=== PATIENT | male | born 1945 | race Caucasian/White ===

== ENCOUNTER 2018-04-04 22:26 | Emergency (ER) | payer MEDICARE ==
[~2018-04-04] VITALS: Ht 167.6 cm; Wt 68.2 kg
[2018-04-04] MEDS ORDERED: CITA-106 PO (22:38)
[2018-04-04] MEDS ORDERED: ADV250 IH (22:38)
[2018-04-04] MEDS ORDERED: PANT40TA25 PO (22:38)
[2018-04-04] MEDS ORDERED: ATOR20TA86 PO (22:38)
[2018-04-04] MEDS ORDERED: ALBU8HFA IH (22:38)
[2018-04-04] MEDS ORDERED: LISI-662 PO (22:38)
[2018-04-04] MEDS ORDERED: ASPI-556 PO (22:38)
[2018-04-05] MEDS ORDERED: ACETAMINOPHEN 325 MG TABLET PO ONE (01:15)
[2018-04-05] MEDS ORDERED: PROPARACAINE HCL 0.5% 15 ML OPHTHALMIC SOLUTION OU ONE (01:15)
[2018-04-05] MEDS ORDERED: DiphenhydrAMINE HCL 25 MG CAPSULE PO ONE (02:15)
[2018-04-05 02:39] VITALS: BP 129/84
== END 2018-04-05 02:39 | disposition home or self-care (01) ==
LOC: EMS 22:26
DX: H10.213 Acute toxic conjunctivitis, bilateral (principal); I10 Essential (primary) hypertension; E78.00 Pure hypercholesterolemia, unspecified; K21.9 Gastro-esophageal reflux disease without esophagitis; J44.9 Chronic obstructive pulmonary disease, unspecified; I25.10 Atherosclerotic heart disease of native coronary artery without angina pectoris; F32.9 Major depressive disorder, single episode, unspecified; Z79.82 Long term (current) use of aspirin; Z87.891 Personal history of nicotine dependence
CPT/HCPCS: 99284